=== PATIENT | male | born 1970 | race Caucasian/White ===

== ENCOUNTER 2024-12-29 15:17 | Outpatient (AMB) | payer MEDICARE, MEDICAID, SELFPAY ==
--- NOTE | 2024-12-29 15:23 | A.OFFVIS_ITS ---
Intake Visit Reasons: Trigeminal neuralgia Allergies gabapentin Allergy (Unknown, Verified 12/22/24 07:38) Unknown Medication List - Last Reconciled 12/29/24 by María Carr MD amlodipine 10 mg PO DAILY baclofen 20 mg PO BID duloxetine 20 mg PO DAILY levothyroxine 75 mcg PO DAILY HPI Comments Details: This is a 54-year-old man with a history of throat cancer status post tracheostomy in 2019, history of COPD, hypothyroidism and hypertension who developed a new onset of pain on the left side of his head involving the left pinna and radiating into the left lower jaw with constant pain. The pain gets worse by lying on it or by touching it when he can get stabbing pains. He was hospitalized at [facility] in October had a negative MRI of head and neck. That report is not available at this time. In 2021 his neck area blew out from radiation therapy.. He was given an injection through the mouth which helped very little. He was given some oxycodone and is currently on baclofen twice a day. Continues to have fairly intense pain. [facility] Medical History (Updated 12/29/24 @ 16:04 by María Carr MD) Lower extremity edema Rotator cuff syndrome of left shoulder COPD (chronic obstructive pulmonary disease) Hypertension Hypothyroidism Superficial vein thrombosis Trigeminal neuralgia Surgical History (Updated 12/22/24 @ 07:36 by Lizbeth Ca CMA) Status post tracheostomy Review of Systems Const Details: ?Sleep Difficulty getting to sleep??denies.??Difficulty maintaining sleep??denies?.?? Urge to move legs??denies.??Teeth grinding??denies.??Shouting or Kicking during sleep??denies.??Abnormal behavior during sleep??denies.??Excessive sleep??denies.??Snoring??denies.??Daytime sleepiness??denies.? General/Constitutional Change in appetite??denies.??Chills??denies.??Fatigue??denies.??Fever??denies.?? Weight gain??denies.??Weight loss??denies.? Ophthalmologic Blurred vision??denies.??Diminished visual acuity??denies.? ENT Stuffiness??denies.??Decreased hearing??denies.??Dry mouth??denies.??Ear pain??left.??Nosebleed??denies.??Ringing in the ears??denies.??Sinus pain??den ies.??Sore throat??denies.??Swollen glands??denies.? Endocrine Cold intolerance??denies.??Excessive thirst??denies.??Frequent urination ??denies.??Heat intolerance??denies.? Respiratory Shortness of breath??yes.??Chest pain??denies.??Cough??denies.? Breast Breast lump??denies.??Nipple discharge??denies.? Cardiovascular Chest pain at rest??denies.??Chest pain with exertion??denies.??Claudication ??denies.??Fluid accumulation in the legs??denies.??Irregular heartbeat ??denies.??Palpitations??denies.? Gastrointestinal Abdominal pain??denies.??Constipation??denies.??Diarrhea??denies.??Heartburn ??denies.??Nausea??denies.??Rectal bleeding??denies.? Hematology Easy bruising??denies.??Prolonged bleeding??denies.? Genitourinary Frequent urination??denies.??Urgency??denies.??Incontinence??denies.??Erectile Dysfunction??denies.? Musculoskeletal Neck pain??denies.??Back pain??denies.??Muscle aches??denies.??Painful joints??denies.? Neurologic Difficulty swallowing??denies.??Balance difficulty??denies.??Coordination ??normal.??Difficulty speaking??denies.??Dizziness??denies.??Fainting ??denies.??Gait abnormality??denies.??Headache??denies.??Loss of strength ??denies.??Loss of use of extremity??denies.??Memory loss??denies.??Seizures ??denies.??Tics??denies.??Tingling/Numbness??denies.??Transient loss of vision ??denies.??Tremor??denies.? Psychiatric Anxiety??denies.??Auditory/visual hallucinations??denies.??Delusions ??denies.??Depressed mood??denies.??Stressors??denies.??Substance abuse ??denies.??Suicidal thoughts??denies.? Physical Exam Neuro Other: Mini Mental Status Exam Level of Consciousness:?Alert.? Orientation:?Knows correct year, month, date, day and season.?Knows correct city, county and state. Knows correct location and floor.? Registration:?Able to register 3 objects.? Attention:?Serial 7's performed accurately.? Recall:?Able to recall 3 out of 3 objects.? Language:?Normal spontaneous speech, fluency, repetition, naming, comprehension, reading, and writing.? Total Score:?30/30.? Neurological Abnormal neurological findings:??Has tracheostomy. Communicates with mouthing words and on a board by writing.? Mental Status:?Alert and oriented X 3.?Normal attention, orientation, memory, and affect.? Cranial Nerves:?Pupils are equal, round and reactive to light. Fundoscopy shows normal disc bilaterally. External occular muscles are intact. Visual huang are full, no ptosis. Face is symmetrical, no facial weakness or droop. Facial sensations are normal. Shoulder shrugging is normal.? Motor Examination:?Normal muscle tone, bulk and strength.?No atrophy or fasciculations.?No drift of the extended upper extremities.?Deep tendon reflexes are 2+.?Plantars are flexor.? Motor Strength:? Proximal Muscles (out of 5):?5 Distal Muscles (out of 5):?5 Neck Flexors (out of 5):?5 Neck Extensors (out of 5):?5 Deltoid (out of 5):?5 Biceps (out of 5):?5 Triceps (out of 5):?5 Serratus Anterior (out of 5):?5 Wrist Extensors (out of 5):?5 APB (out of 5):?5 Finger Spread (out of 5):?5 Ileopsoas (out of 5):?5 Quadriceps (out of 5):?5 Hamstrings (out of 5):?5 Tibialis Anterior (out of 5):?5 Peronei (out of 5):?5 EDB (out of 5):?5 Gastrocnemius (out of 5):?5 Straight Leg Raising:?90 degrees.? Sensory Exam:?Normal light touch, temperature, pinprick, vibration and joint-position sensations.?Rhomberg sign is absent.? Coordination:?No ataxia,?no titubation,?ztnklp-ow-ittg, ecgr-lavu-ktzd test, and rapid alternating movements were normal.? Gait Exam:?Within normal limits.? Cerebellar Signs:?Ooagsa-zp-egop and trun-jc-bblb is normal.?No dysdiadochokinesia.? Extrapyramidal System:?No tremor or?rigidity, normal facial expressions.?No bradykinesia. No bradyphrenia. Normal arm swing and posture. No propulsion or retropulsion.? Speech:?Tracheostomy.? General Examination GENERAL APPEARANCE:??normal,?in no acute distress?,?normal,?in no acute distress.? HEAD:??normocephalic,?atraumatic.? EYES:??sclera non-icteric,?conjunctiva clear.? EARS:??auditory canal clear,?tympanic membrane intact, clear.? NOSE:??no lesions.? ORAL CAVITY:??gums normal,?mucosa moist,?no lesions.? THROAT:?tracheostomy NECK/THYROID:??no cervical lymphadenopathy,?thyroid normal,?neck supple, full range of motion,?no carotid bruit.? SKIN:??no rashes,?no significant birthmarks.? HEART:??S1, S2 normal,?no murmurs?,?S1, S2 normal,?no murmurs.? LUNGS:??clear anteriorly and posteriorly?,?clear anteriorly and posteriorly.? CHEST:??no gross rib deformity,?clear to auscultation.? BACK:??normal exam of spine.? MUSCULOSKELETAL:??normal.? EXTREMITIES:??no edema?,?no edema.? PERIPHERAL PULSES:??normal.? PSYCH:??alert, oriented,?cognitive function intact,?cooperative with exam?,?alert, oriented,?cognitive function intact,?cooperative with exam.? Assessment & Plan Assessment & Plan (1) Trigeminal neuralgia: Code(s): G50.0 - Trigeminal neuralgia Category: Medical Plan obtain MRI reports from [facility] [place]. Start Carbamazepine 200mg bid and increase as tolerated Medications: New carbamazepine (Epitol) 200 mg PO BID 60 tabs 3RF Coding Level of Care Code New Pt Level 5 (87113) Diagnoses Trigeminal neuralgia G50.0
--- OUTSIDE RECORDS SUMMARY | 2024-12-29 16:31 | XMS_ITS | Clinical Summary ---
Author Organization [facility] Address [address] [place] [address] Phone Care Team Providers Care Senior Escrow Officer Name Role Phone Unavailable Primary Care Provider Unavailabl e Encounters Date Type Department Care Team Description 10/04/2024 Ancillary Orders [facility] [address] [place] [address] Unknown, [place], 10/04/2024 Ancillary Orders [facility] [address] [place] [address] Unknown, Unknown, 10/04/2024 Ancillary Orders [facility] [address] [place] [address] Unknown, Unknown, 09/30/2024 Telephone [facility] [address] [facility]th [address], [address] [place] [address] Unknown, Unknown, from Last 3 Months Social History Tobacco Use Types Packs/Day Years Used Date Smoking Tobacco: Never Assessed Education Answer Date Recorded Are you interested in more education? Not on leana e 10/04/2024 Are you concerned about learning? Not on file 10/04/2024 No 10/04/2024 No 10/04/2024 Digital Access Answer Date Recorded No 10/04/2024 No 10/04/2024 Reliable internet access at home? Not on file 10/04/2024 Device with a working camera? Not on file Sex and Gender Information Value Date Recorded Sex Assigned at Not on file Legal Sex Male 5:15 PM EST Gender Identity Not on file Sexual Orientation Not on file Plan of Treatment Not on file Medical Devices Not on file Additional Source Comments The information contained in this document represents components of the legal health record. It is not the complete legal health record.[facility]
--- OUTSIDE RECORDS SUMMARY | 2024-12-29 16:31 | XMS_ITS | Encounter Summary ---
Author Organization [facility] Address [address] [place] [address] Care Team Providers Care Hospice Home Care Coordinator Name Role Phone Patient, Has No Pcp Or Ref Primary Care Provider Unavailable Encounter Details Date Type Department Care Team (Late st Contact Info) Description 12/13/2022 Orders Only [facility] Interventional Radiology [address] [place] [id number] Randi Goff, [place] [address] [place] [address] Social History Tobacco Use Types Packs/Day Years Used Date Smoking Tobacco: Former Cigarettes Smokeless Tobacco: Never Sex and Gender Information Value Date Recorded Sex Assigned at Not on file Legal Sex Male 12:21 PM EDT Gender Identity Not on file Sexual Orientation Not on file documented as of this encounter Plan of Treatment Not on file documented as of this encounter Visit Diagnoses Not on filedocumented in this encounter Additional Health Concerns Infection Onset Date Last Indicated Resolved Time R/O C.diff 12/19/2022 12/19/2022 12/20/2022 3:30 PM EDT R/O C.diff 12/20/2022 12/20/2022 12/21/2022 5:00 PM EDT documented as of this encounter Care Teams Hospice Home Care Coordinator Relationship Specialty Start Date End Date Patient, Has No Pcp Or Ref DO NOT EDIT THIS RECORD VIA PROVIDER ON THE FLY PCP - General Product Safety Coordinator 12/12/22 documented as of this encounter
--- OUTSIDE RECORDS SUMMARY | 2024-12-29 16:31 | XMS_ITS ---
Author Name [facility] Organization Unknown Care Team Organization Name Specialty Phone Email Start Date End Da jhonathan [facility] 12/22/2024 [facility] Primary Care 03/12/2022 12/22/19 24
--- OUTSIDE RECORDS SUMMARY | 2024-12-29 16:31 | XMS_ITS ---
Author Organization [address] Building Address [address] [place] [phone] Phone Care Team Providers Care Dining Room Busser Name Role Phone Christin Muñoz DO Primary Care Provider [phone] Community Health Worker Program Status:Ongoing (Active) Start date:08/31/2024 Enrollment date:09/08/2024 Enrollment reason:Referred by Care Team Related service episodes:[facility] - Transportation (Active) Overview Community Health Worker Program Case Team Name Relationship Phone Rupa Tracy Community Health Worker(Responsi ble Staff) Continued Care and Services Coordination
--- OUTSIDE RECORDS SUMMARY | 2024-12-29 16:31 | XMS_ITS | Encounter Summary ---
Author Organization [facility] [place] [address] Care Team Providers Care Legal Document Specialist Name Role Phone Christin Muñoz DO Primary Care Provider [phone] Encounter Details Date Type Department Care Team (Late st Contact Info) Description 08/31/2024 Referral Triage [place] [facility] Worker [facility] [address] [place] [phone] Rupa Tracy Social History Tobacco Use Types Packs/Day Years Used Date Smoking Tobacco: Former Cigarettes Smokeless Tobacco: Never Alcohol Use Standard Drinks/Week Comments No 0 (1 standard drink = 0.6 oz pur e alcohol) Housing Instability Answer Date Recorde d Are you worried that in the next 2 months you may not have stable housing? No 08/31/2024 Food Access & Nutrition Answer Date Rec orded Do you have access to a vari ety of food including fruits and vegetables? Yes 08/31/2024 Access to Healthcare Answer Date Record ed Within the last 3 months, ho w many times did you visit the emergency department for your medical care? 2 08/31/2024 Health Literacy Answer Date Recorded How often do you need to hav e someone help you when you read instructions, pamphlets, or other written material from your doctor or pharmacy? Never 08/31/2024 Caregiver: How often do you need to have someone help you when you read instructions, pamphlets, or other written material from your doctor or pharmacy? Not on file 08/31/2024 Financial Risk Answer Date Recorded How hard is it for you to pa y for the very basics like food, housing, medical care, and air conditioning / heating? Somewhat hard 08/31/2024 Transportation Answer Date Recorded Has the lack of transportati on kept you from meetings, work, or from getting things needed for daily living? Yes Has the lack of transportati on kept you from medical appointments or from getting medications? Yes 08/31/2024 Social Isolation Answer Date Recorded How often do you feel lonely or isolated from th ose around you? Rarely 08/31/2024 Food Risk Answer Date Recorded Within the past 12 months we worried whether our food would run out before we got money to buy more. Never true 08/31/2024 Within the past 12 months th e food we bought just didn't last and we didn't have money to get more. Never true 08/31/2024 Dependent Care Answer Date Recorded Do you need help finding or paying for care for your loved ones. For example, child therapist or elderly care for an older adult? No 08/31/2024 Education Answer Date Recorded Do you think completing more education or training, like finishing a GED, going to college, or learning a trade, would be helpful for you? N/A 08/31/2024 Employment and Income Answer Date Recor ded During the last four weeks, have you been actively looking for work? No 08/31/2024 Living Situation Answer Date Recorded What is your living situation? 0 08/31/2024 Sex and Gender Information Value Date Recorded Sex Assigned at Not on file Legal Sex Male 7:39 PM EST Gender Identity Not on file Sexual Orientation Not on file documented as of this encounter Plan of Treatment Not on file documented as of this encounter Visit Diagnoses Not on filedocumented in this encounter Additional Health Concerns Assessment Noted Time PHQ-9 Depression Total Score: 17 07/19/ 025 12:12 PM EDT documented as of this encounter Care Teams Legal Document Specialist Relationship Specialty Start Date End Date Christin Muñoz DO [address] [place] [address] PCP - General Internal Medicine 03/25/24 documented as of this encounter
--- OUTSIDE RECORDS SUMMARY | 2024-12-29 16:31 | XMS_ITS ---
Author Organization [address] Building Address [address] [place] [phone] Phone Care Team Providers Care Deputy General Counsel Name Role Phone Christin Muñoz DO Primary Care Provider [facility] - Transportation Status:Ongoing (Active) Start date:09/08/2024 Enrollment date:09/08/2024 Enrollment reason:Referred by Care Team Related social drivers of health:Transportation Related program episode:Community Health Worker Program (Active) Overview Community Health Worker Program - Transportation Service Episode Case Team Name Relationship Phone Rupa Tracy Community Health Worker(Responsi ble Staff) Continued Care and Services Coordination
--- OUTSIDE RECORDS SUMMARY | 2024-12-29 16:31 | XMS_ITS | Clinical Summary ---
Author Organization [facility] Address [address] [place] [address] Care Team Providers Care Sandblasting Supervisor Name Role Phone Patient, Has No Pcp Or Ref Primary Care Provider Unavailable Allergies No known active allergies Medications hydroCHLOROthiaz john (HYDRODIURIL) 12.5 mg tablet Take by mouth once a day. Active levothyroxine (SYNTHROID, LEVOTHROID) 25 mcg tablet Take by mouth daily. Active ipratropium-albu teroL (DUO-NEB) 0.5-2.5 mg/3 mL nebulizer solution Inhale via nebulizer 4 times a day. Active DULoxetine DR (CYMBALTA) 20 mg capsule Take by mouth once a day. Active polyethylene glycol 3350 (MIRALAX) 17 gram packet 1 packet (17 g total) by gastric tube route daily as needed for constipation. Mix powder in 4 to 8 oz of water, juice, coffee, or tea prior to administration. 12/31/19 Active Additional Information Patient not taking.Reported on 02/14/2023 pantoprazole 4 mg/mL in 0.9% NaCl injection injection Infuse 10 mL (40 mg total) intravenously every 24 hours. 1 each 01/01/20 Active ondansetron (ZOFRAN) 4 mg/2 mL injection Infuse 2 mL (4 mg total) intravenously every 8 hours as needed for nausea or vomiting. 20 mL 12/31/19 Active Additional Information Patient not taking.Reported on 02/14/2023 nicotine (NICODERM CQ) 21 mg/[address] 1 patch on the skin once a day. 01/01/20 Active capsaicin (ZOSTRIX-HP) 0.075% topical cream Apply topically to the affected area 3 times a day. 12/31/19 Active droPERidol (INAPSINE) 2.5 mg/mL injection Infuse 0.25 mL (0.625 mg total) intravenously every 6 hours. 2 mL 12/31/19 Active Additional Information Patient not taking.Reported on 02/14/2023 enoxaparin (LOVENOX) 40 mg/0.4 mL subcutaneous injection Inject 0.4 mL (40 mg total) under the skin daily. 12/31/19 Active Additional Information Patient not taking.Reported on 02/14/2023 lactobacillus acidophilus-L. bulgaricus (FLORANEX) 1 million cell tablet 1 tablet by gastric tube route once a day. 01/01/20 Active Additional Information Patient not taking.Reported on 02/14/2023 LORazepam (ATIVAN) 2 mg/mL injection Infuse 0.25 mL (0.5 mg total) intravenously every 4 hours as needed for anxiety. 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 Primary hypertension 12/12/2022 GERD (gastroesophageal reflux disease) Pain at surgical incision 12/12/2022 Surgical site infection 12/12/2022 Hypothyroid 12/12/2022 Tobacco dependence 12/12/2022 Urine retention 12/12/2022 Social History Tobacco Use Types Packs/Day Years Used Date Smoking Tobacco: Former Cigarettes Smokeless Tobacco: Never Sex and Gender Information Value Date Recorded Sex Assigned at Not on file Legal Sex Male 12:21 PM EDT Gender Identity Not on file Sexual Orientation Not on file Last Filed Vital Signs Vital Sign Reading Time Taken Comments Blood Pressure 126/87 02/14/2023 1:13 PM EDT Pulse 111 02/14/2023 1:13 PM EDT Temperature 36.9 C (98.4 F) 12/30/2022 10:29 AM EDT Respiratory Rate 18 12/30/2022 1:43 PM EDT Oxygen Saturation 96% 02/14/2023 1:13 PM EDT Inhaled Oxygen Concentration - - Weight 48.5 kg (107 lb) 02/14/2023 1:13 PM EDT Height 167.6 cm (5' 5.98 ) 02/14/2023 1:13 PM ED T Body Mass Index 17.28 02/14/2023 1:13 PM EDT Plan of Treatment Health Maintenance Due Date Last Done Comments Cologuard 1970 Colon Cancer Screening 1970 Colonoscopy 1970 FOBT / Fit Test 1970 HIV Screening 1970 Hepatitis C Screening 1970 Sigmoidoscopy 1970 Medicare AWV 1971 COVID-19 Vaccine (#1) 1975 Hepatitis B Vaccines (1 of 3 - 19+ 3-dose series) 1989 Pneumococcal Vaccine: 50+ Ye ars (1 of 2 - PCV) 1989 Zoster Vaccines (1 of 2) 1989 DTaP,Tdap,and Td Vaccines (1 - Tdap) 1992 CT Lung Cancer Screening (Baseline) 2020 Basic Metabolic Panel 12/31/2023 12/30/2022 , 12/29/2022, 12/28/2022, Additional history exists Alcohol/Substance Use Screening 05/05/2024 Depression Screening and Follow-Up 05/05/2024 Social Drivers of Health Sania ual Screening 05/05/2024 Influenza Vaccine (#1) 2025 RSV Vaccine (60+ years old a nd patients) (1 - 1-dose 75+ series) 2045 Medical Devices Implanted Type Area Flight Controls Engineer Device Identifier Shelf Expiration Date Model / Serial / Lot Arora Salivary Bypass Tube Implanted:Qty: 1 on 12/13/2022 by Amol Albarado MD at [facility] [employer] 11/01/2026 [id number] / / Procedures * Due to [place] Herotainment law, this organization might not be sharing negative HIV tests. Procedure Name Priority Date/Time Associated Diagnosis Comments BASIC METABOLIC PANEL Routine 12/30/2022 3:11 AM EDT from Last 3 Months or Most Recently Relevant to Health Maintenance Results * Due to [place] Herotainment law, this organization might not be sharing negative HIV tests. * (ABNORMAL) Basic metabolic panel (12/30/2022 3:11 AM EDT) NA 138 135 - 145 mmol/L 12/30/2022 4:50 AM EDT [facility] K 3.9 3.5 - 5.3 mmol/L 12/30/2022 4:50 AM EDT [facility] Cl 99 97 - 110 mmol/L 12/30/2022 4:50 AM EDT [facility] CO2 32 24 - 32 mmol/L 12/30/2022 4:50 AM EDT [facility] BUN 24(H) 7 - 23 mg/dL 12/30/2022 4:50 AM EDT [facility] Creatinine 0.52(L) 0.60 - 1.30 mg/dL 12/30/2022 4:50 AM EDT [facility] Glucose 90 70 - 99 mg/dL 12/30/2022 4:50 AM EDT [facility] Calcium 9.3 8.7 - 10.7 mg/dL 12/30/2022 4:50 AM EDT [facility] Anion Gap 7 5 - 15 12/30/2022 4:50 AM EDT [facility] eGFR >90 >=60 mL/min/1 .73m2 12/30/2022 4:50 AM EDT [facility] Comment:The estimated glomer ular filtration rate (eGFR) is calculated using a new formula developed by the NKF-ASN task force to eliminate race-based correction factors. The new formula uses serum/plasma creatinine, age, and gender to determine eGFR. A value below 60mls/min might indicate kidney disease and will be flagged. For additional information, see Wendie lopez al, Am J Kidney Dis. 2021;79(2):268- 288, A Unifying Approach for GFR estimation: Recommendations of the NKF-ASN Task Force on Reassessing the Inclusion of Race in Diagnosing Kidney Disease . Blood Structure of peripheral vein / Unknown Venipuncture / Unknown 12/30/2022 3:11 AM EDT 12/30/2022 4:12 AM EDT us Brent Pandey MD LAB BLOOD ORDERABLES Final Resul t [facility] [address] [place] [address], from Last 3 Months or Most Recently Relevant to Health Maintenance Insurance [facility] MEDICARE Advance Directives Documents on File Type Date Recorded Patient [employer] Supervisor Expl anation Health Care Proxy 12/13/2022 8:58 PM 12-04 * Full Code (Latest Code Status on File) Date Activated Date Inactivated Comments 12/16/2022 12:53 PM 12/30/2022 6:51 PM * Full Code Date Activated Date Inactivated Comments 12/13/2022 12:12 AM 12/16/2022 12:53 PM * Full Code Date Activated Date Inactivated Comments 12/12/2022 5:16 PM 12/13/2022 12:12 AM Care Teams Sandblasting Supervisor Relationship Specialty Start Date End Date Patient, Has No Pcp Or Ref DO NOT EDIT THIS RECORD VIA PROVIDER ON THE FLY PCP - General Corduroy Cutting Supervisor 12/12/22
--- OUTSIDE RECORDS SUMMARY | 2024-12-29 16:31 | XMS_ITS ---
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 Past Treatment and Therapy Plans No past plan information found. Lifetime Dose Tracking * Chemical Lifetime Dose Automatic Entry Manual Entr y Fluoro Time 0.45 minutes 0.45 minutes 0 minutes TotalDLP 2,260 mGy 2,260 mGy 0 mGy [id number] 37.7 mSv 37.7 mSv 0 mSv CTDIvol Max 53 mGy 53 mGy 0 mGy CTDIvol Min 53 mGy 53 mGy 0 mGy Radiation - mGy 1 mGy 1 mGy 0 mGy
--- OUTSIDE RECORDS SUMMARY | 2024-12-29 16:31 | XMS_ITS | Clinical Summary ---
Author Organization [address] Building Address [address] [place] [phone] Phone Care Team Providers Care Stroke Coordinator Name Role Phone Christin Muñoz DO Primary Care Provider [phone] Allergies Active Allergy Reactions Criticality Noted Date Comments Gabapentin Nausea And Vomiting 09/23/2023 Medications mupirocin (BACTROBAN) 2 % ointment Apply topically 2 (two) times a day. 06/27/19 24 Active sodium chloride 0.9 % nebulizer solutionIndica tions:Pulmonar y emphysema, unspecified emphysema type (CMS/HCC V24, CMS/HCC V28) Take 3 mL by nebulization 4 (four) times a day if needed for wheezing. 90 mL 06/02/19 25 Active amLODIPine (NORVASC) 10 mg tablet Take 1 tablet (10 mg total) by mouth 1 (one) time each day. 90 each 1 07/21/19 25 01/16/ 025 Active levothyroxine (SYNTHROID, LEVOTHROID) 75 mcg tablet TAKE 1 TABLET BY MOUTH EVERY DAY 90 tablet 09/29/19 25 Active pregabalin (LYRICA) 200 mg capsule Take 1 capsule (200 mg total) by mouth 3 (three) times a day. Max Daily Amount: 600 mg 10/05/19 25 Active tiZANidine (ZANAFLEX) 4 mg tablet Take 0.5 tablets (2 mg total) by mouth 2 (two) times a day. 10/05/19 25 Active oxyCODONE (ROXICODONE) 10 mg immediate release tablet Take 1 tablet (10 mg total) by mouth every 6 (six) hours. Max Daily Amount: 40 mg 10/05/19 25 Active lamoTRIgine (LaMICtal) 25 mg tablet Take 1 tablet (25 mg total) by mouth 1 (one) time each day. 10/05/19 25 Active fluticasone propionate (FLONASE) 50 mcg/actuation nasal spray Administer 1 spray into each nostril 2 (two) times a day. 10/05/19 25 Active HYDROmorphone (DILAUDID) 2 mg tablet Take 1.5 tablets (3 mg total) by mouth at bedtime. Max Daily Amount: 3 mg 10/05/19 25 Active DULoxetine (CYMBALTA) [address] capsule TAKE 1 CAPSULE BY MOUTH 1 TIME EACH DAY. 90 capsule 1 10/19/19 25 Active baclofen (LIORESAL) 20 mg tablet TAKE 1 TABLET BY MOUTH TWICE A DAY 20 tablet 12/21/19 25 Active baclofen (LIORESAL) 20 mg tablet TAKE 1 TABLET BY MOUTH TWICE A DAY 60 tablet 11/25/19 25 025 Discontinued Active Problems Problem Noted Date Diagnosed Date Hypothyroidism 07/09/2023 H/O laryngectomy 06/20/2023 Tracheostomy status ([facility] V24, [facility] V28) 0 06/20/2023 Pulmonary emphysema ([facility] V24, [facility] V28) 0 08/06/2022 Hypertension 01/29/2022 Radiation esophagitis 12/03/2021 Overview (01/23/2024): Seen on EGD at [facility] on 11/06/[address] of the chest 07/04/2020 Overview (01/23/2024): Per hematology, 05/25 CT scan lung nodules and 1 cm left axillary lymph node, they are following 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 Lemus following Primary squamous cell carcin rosales of throat ([facility] V24, [facility] V28) 08/14/2019 Overview (01/23/2024): Dr Lemus; chemoradiation Abnormal CT of the abdomen 06/15/2018 Overview (01/23/2024): 06/23 CT: chronic abnormality of the terminal ileum characterized by angulation of the bowel loop and submucosal fat deposition, with nodular soft tissue within the adjacent mesentary, stable dating back to 2004 Irritable bowel syndrome with diarrhea 7 Chronic pain of right upper extremity 03/14/2016 Abdominal pain, generalized 09/03/2006 Diarrhea 09/03/2006 Overview (01/23/2024): IBS Encounters Date Type Department Care Team Description 10/06/2024 10:30 AM EDT [facility] [address] [place] [phone] Christin Muñoz DO Trigeminal neuralgia (Primary Dx); Primary squamous cell carcinoma of throat ([facility] V24, [facility] V28); H/O laryngectomy; Tracheostomy status ([facility] V24, [facility] V28); Pulmonary emphysema, unspecified emphysema type ([facility] V24, [facility] V28); Primary hypertension 10/06/2024 Telephone [facility] [address] [place] [phone] Rupa Tracy 09/29/2024 Telephone [facility] [address] [place] [phone] Christin Muñoz DO from Last 3 Months Immunizations Name Administration Dates Next Due Pneumococcal conjugate 13 va lent (Prevnar 13, PCV13) 2mo and older 10/04/2019 Pneumococcal polysaccharide 23 valent (Pneumovax 23) 2yo and older 07/11/2021 Tdap Tetanus diptheria acell ular pertussis (Boostrix; Adacel) 7yo and older 03/25/2022,12/25/2011 Surgical History Surgery Date Site/Laterality Comments ESOPHAGOGASTRODUODENOSCOPY 10/24/06 PROCEDURE: [place] ESOPHAGOGASTRODUODENOSCOPY TRANSORAL DIAGNOSTIC; COMMENT: Mild antral gastritis, Bx: Mild reactive gastropathy. No HP - duodenum bx; nl COLONOSCOPY 10/24/06 PROCEDURE: [place] COLONOSCOPY FLX DX W/COLLJ SPEC WHEN PFRMD; COMMENT: Normal, bx colon:nl, bx terminal ileum:nl ESOPHAGOGASTRODUODENOSCOPY 02/06/07 PROCEDURE: [place] EGD TRANSORAL BIOPSY SINGLE/MULTIPLE; COMMENT: normal, SB bx nl COLONOSCOPY 07/09/04 PROCEDURE: [place] COLONOSCOPY FLX DX W/COLLJ SPEC WHEN PFRMD; COMMENT: erosion in ileum bx: nl HAND SURGERY 1995 approx Right PROCEDURE: HISTORICAL HAND SURGERY; COMMENT: finger tendon injury OTHER SURGICAL HISTORY PROCEDURE: ---- OTHER ----; COMMENT: nasal septum surgery crush injury SHOULDER SURGERY 03/25/2017 Right PROCEDURE: HISTORICAL SHOULDER SURGERY CHOLECYSTECTOMY 06/12/2018 PROCEDURE: HISTORICAL CHOLECYSTECTOMY OTHER SURGICAL HISTORY 09/03/2019 PROCEDURE: ---- OTHER ----; COMMENT: gastrostomy tube; changed to GJ tube 11/21 Medical History Medical History Date Comments Diarrhea 09/03/2006 DX:Diarrhea Tobacco use DX:Tobacco use Radiation esophagitis 12/03/2021 DX:Radiati on esophagitis; COMMENT: Seen on EGD at [facility] [place] on 11/06/2021 Family History Medical History Relation Name Comments Lymphoma Father Leukemia Mother Coronary artery disease Neg Hx Diabetes Neg Hx Hypertension Neg Hx Relation Name Status Comments Father Mother Social History Tobacco Use Types Packs/Day Years Used Date Smoking Tobacco: Former Cigarettes Smokeless Tobacco: Never Tobacco Cessation:Counseling Given: Not Answered Alcohol Use Standard Drinks/Week Comments No 0 [...] for your loved ones. For example, child monitor or elderly care for an older adult? [...] on file Sexual Orientation Not on file Obstetrics History Last Filed Vital Signs Vital Sign Reading Time Taken Comments Blood Pressure 134/90 10/06/2024 10:23 AM EDT Pulse 104 10/06/2024 10:10 AM EDT Temperature - - Respiratory Rate 16 07/20/2024 10:48 AM EDT Oxygen Saturation - - Inhaled Oxygen Concentration - - Weight 71.7 kg (158 lb) 10/06/2024 10:10 AM EDT Height 170.2 cm (5' 7 ) 10/06/2024 10:10 AM EDT Body Mass Index 24.75 10/06/2024 10:10 AM EDT Plan of Treatment Health Maintenance Due Date Last Done Comments COVID-19 Vaccine (#1) 1975 Hepatitis B Vaccines (1 of 3 - 19+ 3-dose series) 1989 Zoster Vaccines (1 of 2) 1989 Colorectal Cancer Screening: Stool Based Tests (FOBT/FIT) 04/06/2022 Medicare Annual Wellness Visit 04/06/2022 Hypertension/CHF/CAD Annual BMP Blood Test 09/22/2024 09/23/2023, 09/23/2023, 12/30/2022 Influenza Vaccine (#1) 2025 Social Influencers of Health Screening 08/31/2025 08/31/2024 Pneumococcal Vaccine: 50+ Years (3 of 3 - PPSV23, PCV20 or PCV21) 07/11/2026 07/11/2021, 10/04/2019 Cholesterol Screening (Lipid Panel) 01/01/2029 01/02/2024, 01/02/2024, 01/02/2024, Additional history exists DTaP,Tdap,and Td Vaccines (3 - Td or Tdap) 03/25/2032 03/25/2022, 12/25/2011 HIV Screening Completed 07/06/2019 Hepatitis C Screening Completed 07/06/2019 Depression Screening Completed 07/19/2024, 10/04/19 24 HIB Vaccines Aged Out No longer eligi ble based on patient's age to complete this topic HPV Vaccines Aged Out No longer eligi ble based on patient's age to complete this topic Hepatitis A Vaccines Aged Out No long er eligible based on patient's age to complete this topic IPV Vaccines Aged Out No longer eligi ble based on patient's age to complete this topic MMR Vaccines Aged Out No longer eligi ble based on patient's age to complete this topic Meningococcal ACWY Vaccine Aged Out N o longer eligible based on patient's age to complete this topic Meningococcal B Vaccine Aged Out No l onger eligible based on patient's age to complete this topic RSV Immunization Patients Under 20 months Aged Out No longer eligible based on patient's age to complete this topic Varicella Vaccines Aged Out No longer eligible based on patient's age to complete this topic Procedures Procedure Name Priority Date/Time Associated Diagnosis Comments LIPID PANEL Routine 01/02/2024 DEPRESSION SCREENING Routine 10/04/2023 ANNUAL BMP BLOOD TEST Routine 09/23/2023 HEPATITIS C SCREENING Routine 07/06/2019 HIV SCREENING Routine 07/06/2019 from Last 3 Months or Most Recently Relevant to Health Maintenance Results * Lipid panel (01/02/2024) Pathologist [facility] LDL/HDL Ratio 4 Triglycerides 122 mg/dL Cholesterol 242 mg/dL HDL 56 mg/dL LDL Cholesterol 162 mg/dL Blood Venous blood specimen / Unknown Result [facility] Provider LAB BLOOD ORDERABLES Ana l Result * Depression Screening (10/04/2023) Pathologist [facility] Depression Screening abstracted [facility] Provider HEALTH MAINTENANCE Final Result * Annual BMP Blood Test (09/23/2023) Pathologist [facility] Annual BMP Blood Test abstracted Historical Provider HEALTH MAINTENANCE Final Result * HIV Screening (07/06/2019) Pathologist [facility] HIV Screening abstracted [facility] Provider HEALTH MAINTENANCE Final Result * Hepatitis C Screening (07/06/2019) Pathologist [facility] Hepatitis C Screening abstracted [facility] Provider HEALTH MAINTENANCE Final Result from Last 3 Months or Most Recently Relevant to Health Maintenance Insurance [place]ICA[place] - [place] MEDICARE Advance Directives Documents on File Type Date Recorded 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
== END 2024-12-29 16:16 | disposition home or self-care (01) ==
LOC: HO.HSM 15:17
PROVIDERS: PCP Internal Medicine; Visit Provider Psychiatry & Neurology Neurology
DX: G50.0 Trigeminal neuralgia (principal)
CPT/HCPCS: 99204

== ENCOUNTER → 2024-12-29 15:17 | Outpatient (BNVA) | payer MEDICARE, MEDICAID, SELFPAY | PROVIDERS: PCP Internal Medicine; Visit Provider Psychiatry & Neurology Neurology | DX: G50.0 Trigeminal neuralgia (principal) | CPT/HCPCS: 99202 ==